=== PATIENT | female | born 1970 | race Caucasian/White ===

== ENCOUNTER 2018-03-05 09:42 | Emergency (ER) | payer MEDICAID, OTHER ==
[~2018-03-05] VITALS: Ht 165.1 cm; Wt 59.0 kg
[2018-03-05 09:47] VITALS: BP_SYST 131
[2018-03-05] MEDS ORDERED: NACL 0.9% 1,000 ML IV ONE (10:14)
[2018-03-05] MEDS ORDERED: MORPHINE 4 MG/ML INJ. SYRINGE IVP ONE (10:15)
[2018-03-05] MEDS ORDERED: ONDANSETRON HCL 4 MG/2 ML VIAL IVP ONE (10:15)
[2018-03-05 10:24] LABS: BILIRUBIN,URINE 1+ (NEGATIVE); BLOOD, URINE 2+ (NEGATIVE); CLARITY/URINE CLOUDY (CLEAR); COLOR,URINE YELLOW (YELLOW); GLUCOSE,URINE NEGATIVE (NEGATIVE); KETONES,URINE TRACE (NEGATIVE); LEUKOCYTE ESTERASE ,URINE NEGATIVE (NEGATIVE); NITRITE, URINE POSITIVE (NEGATIVE); PROTEIN URINE TRACE (NEGATIVE); UROBILINOGEN,URINE 0.2 (0.2-1.0)
[2018-03-05 10:28] LABS: BASOPHILS % (AUTO) 0.5 % (0.0-2.0); EOSINOPHILS # (AUTO) 0.2 K/uL (0.0-0.4); EOSINOPHILS % (AUTO) 4.1 % (0.0-4.0); HEMATOCRIT 40.5 % (36-48); HEMOGLOBIN 13.6 g/dL (12.0-16.0); LYMPHOCYTES # (AUTO) 1.3 K/uL (1.0-5.5); LYMPHOCYTES % (AUTO) 30.9 % (20.5-51.5); MEAN CORPUSCULAR HEMOGLOBIN 29 pg (27-31); MEAN CORPUSCULAR HGB CONC 34 % (32-36); MEAN CORPUSCULAR VOLUME 87 fL (79.0-98.0); MONOCYTES # (AUTO) 0.4 K/uL (0.0-1.0); MONOCYTES % (AUTO) 8.8 % (1.7-9.3); NEUTROPHILS # (AUTO) 2.3 K/uL (1.8-7.7); NEUTROPHILS % (AUTO) 55.7 % (40.0-70.0); PLATELET COUNT (AUTO) 243 K/uL (130-430); RED BLOOD CELL COUNT(AUTO) 4.66 MIL/uL (4.2-6.2); RED CELL DISTRIBUTION WIDTH 12.5 % (9.0-15.0); WHITE BLOOD COUNT (AUTO) 4.2 K/uL (4.8-10.8)
[2018-03-05 10:40] LABS: CALCIUM 8.9 mg/dL (8.4-11.0); CREATININE 0.66 mg/dL (0.55-1.30); POTASSIUM 3.5 mmol/L (3.5-5.1)
[2018-03-05 10:43] LABS: PROTHROMBIN TIME 10.5 SECS (9.5-12.5)
[2018-03-05 10:45] LABS: ALBUMIN 3.4 g/dL (3.4-4.8); TOTAL BILIRUBIN 0.3 mg/dL (0.0-1.0)
[2018-03-05 11:12] LABS: BACTERIA,URINE MANY /HPF (None Seen); MUCUS,URINE None Seen /LPF (None Seen)
[2018-03-05] MEDS ORDERED: MAG HYDROX/AL HYDROX/SIMETH 30 ML, BELLADONNA ALKALOIDS/PHENOBARB 10 ML, LIDOCAINE VISC... PO ONE ×3 (11:30)
[2018-03-05] MEDS ORDERED: cefTRIAXone 1 GM IVPB PREMIX 50 ML IV ONE (11:30)
[2018-03-05 13:23] VITALS: BP_SYST 128
== END 2018-03-05 13:17 | disposition home or self-care (01) ==
LOC: SED 09:42
DX: K27.9 Peptic ulcer, site unspecified, unspecified as acute or chronic, without hemorrhage or perforation (principal); N39.0 Urinary tract infection, site not specified; R03.0 Elevated blood-pressure reading, without diagnosis of hypertension; Z98.890 Other specified postprocedural states
CPT/HCPCS: 36415; 71045; 80053; 81000; 82150; 82550; 83690; 84484; 85025; 85610; 85730; 87086; 87186; 93005; 96361; 96365; 99285; J0696; J2001; J2405; J7030; J2270

== ENCOUNTER 2018-07-16 20:53 | Emergency (ER) | payer MEDICAID ==
[~2018-07-16] VITALS: Ht 165.1 cm; Wt 59.0 kg
[2018-07-16 21:10] VITALS: BP_SYST 117
--- NOTE | 2018-07-16 21:10 | NUR ---
Pt ambulatory to bed 1 for evaluation
--- NOTE | 2018-07-16 21:16 | NUR ---
Patient to ER C/O 3 days of LLQ abdominal pain 06/30, pain described as cramping like radiating to lower back, with nausea and vomiting earlier today. Denies diarrhea/constipation. Denies pain being associated with food intake. AAOx4, unlabored breathing, no signs of acute distress.
--- NOTE | 2018-07-16 22:57 | NUR ---
ER MD Cardoza at bedside evaluating the patient
[2018-07-16] MEDS ORDERED: ONDANSETRON HCL 4 MG/2 ML VIAL IVP ONE (23:15)
[2018-07-16] MEDS ORDERED: FAMOTIDINE PF 20 MG/2 ML VIAL IVP ONE (23:15)
[2018-07-16] MEDS ORDERED: HYDROmorphone 1 MG INJ. 1 MG/ML AMPUL IVP ONE (23:15)
[2018-07-16] MEDS ORDERED: NACL 0.9% 1,000 ML IV ONE (23:15)
--- NOTE | 2018-07-16 23:15 | NUR ---
# 20 gauge angiocath placed to right ac. Use of asceptic technique. Opsite placed over site. Blood return noted. Blood for lab drawn from site. Flushed with 10 cc of normal saline. No evidence of infiltration noted. Patient tolerated well.
[2018-07-16 23:32] LABS: BILIRUBIN,URINE 1+ (NEGATIVE); BLOOD, URINE 1+ (NEGATIVE); CLARITY/URINE SL CLOUDY (CLEAR); COLOR,URINE YELLOW (YELLOW); GLUCOSE,URINE NEGATIVE (NEGATIVE); KETONES,URINE NEGATIVE (NEGATIVE); LEUKOCYTE ESTERASE ,URINE TRACE (NEGATIVE); NITRITE, URINE POSITIVE (NEGATIVE); PH,URINE 6.5 (5.0-8.0); PROTEIN URINE 1+ (NEGATIVE)
[2018-07-16 23:41] LABS: BASOPHILS # (AUTO) 0.1 K/uL (0.0-0.2); BASOPHILS % (AUTO) 0.9 % (0.0-2.0); EOSINOPHILS # (AUTO) 0.2 K/uL (0.0-0.4); EOSINOPHILS % (AUTO) 3.9 % (0.0-4.0); HEMATOCRIT 41.8 % (36-48); HEMOGLOBIN 13.9 g/dL (12.0-16.0); LYMPHOCYTES # (AUTO) 2.4 K/uL (1.0-5.5); LYMPHOCYTES % (AUTO) 39.1 % (20.5-51.5); MEAN CORPUSCULAR HEMOGLOBIN 29 pg (27-31); MEAN CORPUSCULAR HGB CONC 33 % (32-36); MEAN CORPUSCULAR VOLUME 88 fL (79.0-98.0); MONOCYTES # (AUTO) 0.4 K/uL (0.0-1.0); MONOCYTES % (AUTO) 6.5 % (1.7-9.3); NEUTROPHILS # (AUTO) 3.1 K/uL (1.8-7.7); NEUTROPHILS % (AUTO) 49.6 % (40.0-70.0); PLATELET COUNT (AUTO) 245 K/uL (130-430); RED BLOOD CELL COUNT(AUTO) 4.73 MIL/uL (4.2-6.2); RED CELL DISTRIBUTION WIDTH 12.4 % (9.0-15.0); WHITE BLOOD COUNT (AUTO) 6.2 K/uL (4.8-10.8)
[2018-07-16 23:41] LABS: BACTERIA,URINE MANY /HPF (None Seen); MUCUS,URINE None Seen /LPF (None Seen)
--- NOTE | 2018-07-16 23:45 | NUR ---
Medicated per MD orders.
[2018-07-16 23:53] LABS: ALBUMIN 3.8 g/dL (3.4-4.8); CALCIUM 8.6 mg/dL (8.4-11.0); CREATININE 0.77 mg/dL (0.55-1.30); POTASSIUM 3.5 mmol/L (3.5-5.1); TOTAL BILIRUBIN 0.5 mg/dL (0.0-1.0)
[2018-07-17] MEDS ORDERED: cefTRIAXone 1 GM IVPB PREMIX 50 ML IV ONE (00:30)
[2018-07-17 02:02] VITALS: BP_SYST 138
--- NOTE | 2018-07-17 02:02 | NUR ---
Patient given written and verbal discharge instructions and verbalizes understanding. ER MD Cardoza discussed with patient the results and treatment provided. Patient in stable condition. ID arm band removed. IV catheter removed intact and dressing applied, no active bleeding. Rx of compazine & bactrim given. Patient educated on pain management and to follow up with PMD. Pain Scale 0/10. Opportunity for questions provided and answered. Medication side effect fact sheet provided.
== END 2018-07-17 02:02 | disposition home or self-care (01) ==
LOC: SED 20:53
DX: R10.9 Unspecified abdominal pain (principal); N39.0 Urinary tract infection, site not specified; R11.2 Nausea with vomiting, unspecified; R19.7 Diarrhea, unspecified
CPT/HCPCS: 36415; 80053; 81000; 81025; 83690; 85025; 87086; 96361; 96365; 96375; 99284; J0696; J1170; J2405; J3490; J7030; 87186-TC

== ENCOUNTER 2019-05-06 14:13 | Emergency (ER) | payer MEDICAID ==
[~2019-05-06] VITALS: Ht 165.1 cm; Wt 59.0 kg
[2019-05-06 14:21] VITALS: BP_SYST 156
--- NOTE | 2019-05-06 14:24 | NUR ---
AMBULATED TO BED5
--- NOTE | 2019-05-06 14:26 | NUR ---
Pt moved to bed 07
--- NOTE | 2019-05-06 14:29 | NUR ---
ER DAVID Cabrera at bedside examining patient.
[2019-05-06] MEDS ORDERED: KETOROLAC TROMETHAMINE 30 MG VIAL IVP ONE (14:30)
[2019-05-06] MEDS ORDERED: NACL 0.9% 1,000 ML IV ONE (14:30)
[2019-05-06] MEDS ORDERED: ONDANSETRON HCL 4 MG/2 ML VIAL IVP ONE (14:30)
--- NOTE | 2019-05-06 14:32 | NUR ---
Pt AAOx4 ambulated into ED c/o 10/10 L flank pain radiating to L abdomen and 1 episode of vomiting x 5 hours. Pt denies dysuria/hematuria/diarrhea. No other injuries/complaints per pt/noted. Will continue to monitor
--- NOTE | 2019-05-06 14:58 | NUR ---
Medication administered. Pt tolerated well. No adverse reactions noted.
[2019-05-06 15:33] LABS: BASOPHILS % (AUTO) 0.4 % (0.0-2.0); EOSINOPHILS # (AUTO) 0.4 K/uL (0.0-0.4); EOSINOPHILS % (AUTO) 4.2 % (0.0-4.0); HEMATOCRIT 43.8 % (36-48); HEMOGLOBIN 14.6 g/dL (12.0-16.0); LYMPHOCYTES # (AUTO) 2.5 K/uL (1.0-5.5); LYMPHOCYTES % (AUTO) 29.7 % (20.5-51.5); MEAN CORPUSCULAR HEMOGLOBIN 29 pg (27-31); MEAN CORPUSCULAR HGB CONC 33 % (32-36); MEAN CORPUSCULAR VOLUME 88 fL (79.0-98.0); MONOCYTES # (AUTO) 0.5 K/uL (0.0-1.0); MONOCYTES % (AUTO) 5.8 % (1.7-9.3); NEUTROPHILS % (AUTO) 59.9 % (40.0-70.0); PLATELET COUNT (AUTO) 283 K/uL (130-430); RED BLOOD CELL COUNT(AUTO) 4.97 MIL/uL (4.2-6.2); RED CELL DISTRIBUTION WIDTH 12.9 % (9.0-15.0); WHITE BLOOD COUNT (AUTO) 8.4 K/uL (4.8-10.8)
[2019-05-06 15:43] LABS: CALCIUM 9.6 mg/dL (8.4-11.0); CREATININE 0.63 mg/dL (0.55-1.30)
[2019-05-06 15:47] LABS: ALBUMIN 3.8 g/dL (3.4-4.8); TOTAL BILIRUBIN 0.3 mg/dL (0.0-1.0)
--- NOTE | 2019-05-06 15:52 | NUR ---
Pt taken to radiology via gurney in stable condition
--- NOTE | 2019-05-06 16:19 | NUR ---
Pt returned from radiology via [facility] in stable condition
[2019-05-06 16:29] LABS: BILIRUBIN,URINE NEGATIVE (NEGATIVE); CLARITY/URINE CLEAR (CLEAR); COLOR,URINE YELLOW (YELLOW); GLUCOSE,URINE NEGATIVE (NEGATIVE); KETONES,URINE NEGATIVE (NEGATIVE); LEUKOCYTE ESTERASE ,URINE NEGATIVE (NEGATIVE); NITRITE, URINE NEGATIVE (NEGATIVE); PH,URINE 7.5 (5.0-8.0); PROTEIN URINE NEGATIVE (NEGATIVE); UROBILINOGEN,URINE 0.2 (0.2-1.0)
[2019-05-06 16:30] LABS: BLOOD, URINE TRACE (NEGATIVE)
[2019-05-06 16:40] LABS: BACTERIA,URINE FEW /HPF (None Seen); MUCUS,URINE None Seen /LPF (None Seen); RBC,URINE NONE SEEN /HPF (0-3); WBC,URINE 0-3 /HPF (0-3)
--- NOTE | 2019-05-06 17:05 | NUR ---
Patient given written and verbal discharge instructions and verbalizes understanding. ER MD Duran discussed with patient the results and treatment provided. Patient in stable condition. ID arm band removed. IV catheter removed intact and dressing applied, no active bleeding. Rx of Zofran, Ibuprofen given. Patient educated on pain management and to follow up with PMD. Pain Scale 0. Opportunity for questions provided and answered. Medication side effect fact sheet provided.
[2019-05-06 17:06] VITALS: BP_SYST 142
== END 2019-05-06 17:05 | disposition home or self-care (01) ==
LOC: SED 14:13
DX: N20.0 Calculus of kidney (principal); R03.0 Elevated blood-pressure reading, without diagnosis of hypertension; Z88.6 Allergy status to analgesic agent
CPT/HCPCS: 36415; 74176; 80053; 81000; 83690; 85025; 96374; 96375; 99284; J1885; J2405; J7030

== ENCOUNTER 2022-06-23 12:16 | Emergency (ER) | payer MEDICAID ==
[~2022-06-23] VITALS: Ht 165.1 cm; Wt 61.2 kg
[2022-06-23 12:22] VITALS: BP_SYST 121
--- NOTE | 2022-06-23 12:25 | NUR ---
Patient triaged and placed in waiting room. VSS and patient appears in no acute distress at this time. Accompanied by FRIEND, awaiting available bed, and MD notified of need for MSE.
--- NOTE | 2022-06-23 13:10 | NUR ---
Placed in room 7 . Placed on bookkeeper, blood pressure machine and pulse oximeter. To gown for exam. Side rails up. Report given to KATE MARTIN.
--- NOTE | 2022-06-23 13:10 | NUR ---
RECEIVED PT FROM KATE HUSAIN. PT HAS C/O AB PAIN, FULLNESS AND BLOATING X ONE WEEK. RESP E/U. ON R/A. ABDOMEN SOFT, NONTENDER, NONDISTENDED. BOWEL SOUNDS ACTIVE X4 QUADS. DENIES N/V/D/C. NO OTHER DISTRESS NOTED. SIDERAILS UP X2.
[2022-06-23 13:59] LABS: BILIRUBIN,URINE NEGATIVE (NEGATIVE); BLOOD, URINE 1+ (NEGATIVE); CLARITY/URINE CLEAR (CLEAR); COLOR,URINE YELLOW (YELLOW); GLUCOSE,URINE NEGATIVE (NEGATIVE); KETONES,URINE NEGATIVE (NEGATIVE); LEUKOCYTE ESTERASE ,URINE TRACE (NEGATIVE); NITRITE, URINE NEGATIVE (NEGATIVE); PROTEIN URINE NEGATIVE (NEGATIVE); UROBILINOGEN,URINE 0.2 (0.2-1.0)
[2022-06-23 13:59] LABS: BASOPHILS % (AUTO) 0.5 % (0.0-2.0); CALCIUM 9.2 mg/dL (8.4-11.0); CREATININE 0.72 mg/dL (0.55-1.30); EOSINOPHILS # (AUTO) 0.2 K/uL (0.0-0.4); EOSINOPHILS % (AUTO) 4.3 % (0.0-4.0); HEMATOCRIT 39.3 % (36-48); HEMOGLOBIN 13.5 g/dL (12.0-16.0); LYMPHOCYTES # (AUTO) 2.1 K/uL (1.0-5.5); LYMPHOCYTES % (AUTO) 39.6 % (20.5-51.5); MEAN CORPUSCULAR HEMOGLOBIN 29 pg (27-31); MEAN CORPUSCULAR HGB CONC 34 % (32-36); MEAN CORPUSCULAR VOLUME 85 fL (79.0-98.0); MONOCYTES # (AUTO) 0.4 K/uL (0.0-1.0); MONOCYTES % (AUTO) 7.7 % (1.7-9.3); NEUTROPHILS # (AUTO) 2.6 K/uL (1.8-7.7); NEUTROPHILS % (AUTO) 47.9 % (40.0-70.0); PLATELET COUNT (AUTO) 228 K/uL (130-430); POTASSIUM 4.4 mmol/L (3.5-5.1); RED BLOOD CELL COUNT(AUTO) 4.63 MIL/uL (4.2-6.2); RED CELL DISTRIBUTION WIDTH 13.2 % (9.0-15.0); WHITE BLOOD COUNT (AUTO) 5.4 K/uL (4.8-10.8)
[2022-06-23 14:09] LABS: ALBUMIN 3.6 g/dL (3.4-4.8); TOTAL BILIRUBIN 0.4 mg/dL (0.0-1.0)
[2022-06-23] MEDS ORDERED: DICYCLOMINE HCL 10 MG/5 ML SOLUTION PO ONE (14:15)
[2022-06-23] MEDS ORDERED: MAG-AL HYDROX/SIMETH 30 ML UDC PO ONE (14:15)
[2022-06-23] MEDS ORDERED: LIDOCAINE VISCOUS 2%, 15 ML UDC MM ONE (14:15)
[2022-06-23 14:24] LABS: BACTERIA,URINE FEW /HPF (None Seen); MUCUS,URINE 1+ /LPF (None Seen)
[2022-06-23] MEDS ORDERED: IBUP-1969 PO (16:01)
[2022-06-23 16:40] VITALS: BP_SYST 125
--- NOTE | 2022-06-23 17:55 | NUR ---
DPatient given written and verbal discharge instructions and verbalizes understanding. ER MD discussed with patient the results and treatment provided. Patient in stable condition. ID arm band removed. IV catheter removed intact and dressing applied, no active bleeding. Rx of IBUPROFEN given. Patient educated on pain management and to follow up with PMD. Pain Scale 0/10. Opportunity for questions provided and answered. Medication side effect fact sheet provided.
== END 2022-06-23 16:40 | disposition home or self-care (01) ==
LOC: SED 12:16
DX: R10.12 Left upper quadrant pain (principal); R10.11 Right upper quadrant pain; R11.0 Nausea; K59.00 Constipation, unspecified; R50.9 Fever, unspecified; Z88.6 Allergy status to analgesic agent; Z79.899 Other long term (current) drug therapy
CPT/HCPCS: 99284; 74176; 80053; 81000; 83690; 85025; 87086; 36415; 76376; J2001